=== PATIENT | female | born 1950 | race Two or more races ===

== ENCOUNTER 2020-03-11 16:24 | Emergency (ER) | payer OTHER ==
[~2020-03-11] VITALS: Ht 157.5 cm; Wt 80.7 kg
[2020-03-11 17:41] LABS: Eosinophils # (auto) 0.1 10 ^3/uL (0-0.8); Lymphocytes % (auto) 19.6 % (10.0-50.0); Monocytes # (auto) 0.7 10 ^3/uL (0-1.3); Neutrophils # (auto) 7.4 10 ^3/uL (1.6-8.6)
[2020-03-11 17:42] LABS: Basophils # (auto) 0.1 10 ^3/uL (0-0.2); Basophils % (auto) 0.6 % (0.0-2.0); Eosinophils % (auto) 0.6 % (0.0-7.0); Hematocrit 43.1 % (36.0-46.0); Hemoglobin 14.9 g/dL (12.2-16.2); Mean Corpuscular Hemoglobin 34.6 pg (28.0-32.0); Mean Corpuscular Hgb Conc. 34.6 g/dL (32.0-36.0); Mean Corpuscular Volume 99.9 fL (80.0-100.0); Monocytes % (auto) 6.5 % (0.0-12.0); Neutrophils % (auto) 72.7 % (37.0-80.0); Platelet Count (auto) 274 10^3/uL (140-450); Red Blood Cells 4.31 10^6/uL (4.0-5.20); Red Cell Distribution Width 13.6 % (11.8-14.3); White Blood Cell 10.2 10^3/uL (4.4-10.8)
[2020-03-11] MEDS ORDERED: cloNIDine HCL 0.1 MG TAB ONE (17:57)
[2020-03-11] MEDS ORDERED: cloNIDine HCL 0.1 MG TAB PO ONE (18:00)
[2020-03-11 18:06] LABS: Alanine Aminotransferase 26 U/L (13-56); Albumin 3.4 g/dL (3.4-5.0); Anion Gap 8 (5-15); Aspartate Aminotransferase 16 U/L (15-37); BUN/Creatinine Ratio 21.2; Blood Urea Nitrogen 14 mg/dL (7-18); Calcium 8.3 mg/dL (8.5-10.1); Carbon Dioxide 24 mmol/L (21-32); Chloride 109 mmol/L (98-107); GFR African American 114 mL/min; GFR Non-African American 94 mL/min; Glucose 88 mg/dL (74-106); Lipase 95 U/L (73-393); Potassium 3.3 mmol/L (3.5-5.1); Sodium 141 mmol/L (136-145)
[2020-03-11 18:11] LABS: Alkaline Phosphatase 92 U/L (45-117); Bilirubin, Total 0.4 mg/dL (0.2-1.0); Total Protein 6.9 g/dL (6.4-8.2)
[2020-03-11 18:57] LABS: Urine WBC None Seen /hpf (0 - 5)
[2020-03-11 19:18] LABS: Urine Bacteria NONE SEEN /hpf (None Seen); Urine Blood Negative /uL (Negative); Urine Mucus FEW (None Seen); Urine Specific Gravity 1.014 (1.001-1.035)
[2020-03-11 19:43] VITALS: BP 185/93
[2020-03-12] MEDS ORDERED: METO-158 PO ×2 (09:25→09:29)
[2020-03-12] MEDS ORDERED: LISI-648 PO (09:25)
== END 2020-03-11 19:46 | disposition home or self-care (01) ==
LOC: ER 16:24
DX: R10.9 Unspecified abdominal pain (principal); I16.0 Hypertensive urgency; F17.210 Nicotine dependence, cigarettes, uncomplicated; I10 Essential (primary) hypertension
CPT/HCPCS: 36415; 74176; 80053; 81001; 83690; 84484; 85025; 93005

== ENCOUNTER 2020-03-11 22:38 | Inpatient (IN) | payer OTHER ==
[~2020-03-11] VITALS: Ht 157.5 cm; Wt 85.0 kg
[2020-03-12 01:16] LABS: Basophils # (auto) 0 10 ^3/uL (0-0.2); Basophils % (auto) 0.5 % (0.0-2.0); Eosinophils # (auto) 0.1 10 ^3/uL (0-0.8); Eosinophils % (auto) 1.1 % (0.0-7.0); Hematocrit 41.8 % (36.0-46.0); Hemoglobin 14.1 g/dL (12.2-16.2); Lymphocytes # (auto) 2.7 10 ^3/uL (0.4-5.4); Lymphocytes % (auto) 33.5 % (10.0-50.0); Mean Corpuscular Hemoglobin 33.8 pg (28.0-32.0); Mean Corpuscular Hgb Conc. 33.6 g/dL (32.0-36.0); Mean Corpuscular Volume 100.6 fL (80.0-100.0); Monocytes # (auto) 0.7 10 ^3/uL (0-1.3); Monocytes % (auto) 8.5 % (0.0-12.0); Neutrophils # (auto) 4.5 10 ^3/uL (1.6-8.6); Neutrophils % (auto) 56.4 % (37.0-80.0); Nucleated Red Blood Cells % 0.2 %; Platelet Count (auto) 265 10^3/uL (140-450); Red Blood Cells 4.16 10^6/uL (4.0-5.20); Red Cell Distribution Width 13.6 % (11.8-14.3); White Blood Cell 7.9 10^3/uL (4.4-10.8)
[2020-03-12 01:30] LABS: Alanine Aminotransferase 25 U/L (13-56); Albumin 3.2 g/dL (3.4-5.0); Anion Gap 7 (5-15); Aspartate Aminotransferase 15 U/L (15-37); BUN/Creatinine Ratio 24.6; Blood Urea Nitrogen 14 mg/dL (7-18); Calcium 8.4 mg/dL (8.5-10.1); Carbon Dioxide 25 mmol/L (21-32); Chloride 108 mmol/L (98-107); GFR African American 135 mL/min; GFR Non-African American 112 mL/min; Glucose 84 mg/dL (74-106); Magnesium 1.9 mg/dL (1.6-2.6); Potassium 3.4 mmol/L (3.5-5.1); Sodium 140 mmol/L (136-145)
[2020-03-12 01:46] LABS: Alkaline Phosphatase 83 U/L (45-117); Bilirubin, Total 0.4 mg/dL (0.2-1.0); Total Protein 6.5 g/dL (6.4-8.2)
[2020-03-12] MEDS ORDERED: cloNIDine HCL 0.1 MG TAB PO ONE (03:15)
[2020-03-12] MEDS ORDERED: TEMAZEPAM 15 MG CAP PO ONE (03:30)
[2020-03-12] MEDS ORDERED: ACETAMINOPHEN 325 MG TAB PO ONE (03:30)
[2020-03-12] MEDS ORDERED: TEMAZEPAM 15 MG CAP PO PRN (06:00)
[2020-03-12] MEDS ORDERED: MORPHINE SULF INJ 2 MG/ML SYRINGE 1ML IV PRN (06:00)
[2020-03-12] MEDS ORDERED: ONDANSETRON HCL 4 MG/2 ML VIAL IV PRN (06:00)
[2020-03-12] MEDS ORDERED: ACETAMINOPHEN 325 MG TAB PO PRN (06:00)
[2020-03-12] MEDS ORDERED: NITROGLYCERIN 0.4 MG SL TAB SL PRN (06:00)
[2020-03-12 08:29] VITALS: BP 194/74
[2020-03-12 08:45] VITALS: BP 158/96
[2020-03-12] MEDS ORDERED: LISI-648 PO (09:25)
[2020-03-12] MEDS ORDERED: METO-158 PO ×2 (09:25→09:29)
[2020-03-12] MEDS: FAMOTIDINE 20 MG TAB PO SCH ×2 (10:00→22:15)
[2020-03-12] MEDS: METOPROLOL SUCCINATE XL 50 MG TAB PO SCH (10:04)
[2020-03-12] MEDS: LISINOPRIL 20 MG TAB PO SCH (10:04)
[2020-03-12] MEDS: cloNIDine HCL 0.1 MG TAB PO PRN ×2 (10:09→16:35)
[2020-03-12 13:00] VITALS: BP 159/90
[2020-03-12] MEDS ORDERED: FUROSEMIDE 40 MG TAB PO ONE (17:00)
[2020-03-12] MEDS ORDERED: POTASSIUM CHL 20 Meq TABLET PO ONE (17:00)
[2020-03-12] MEDS ORDERED: KETOROLAC TROMETH 30 MG/ML 1ML VIAL IV ONE (18:45)
[2020-03-12] MEDS: hydrALAZINE HCL 25 MG TAB PO SCH ×2 (18:57→22:15)
[2020-03-12] MEDS: amLODIPine BESYLATE 5 MG TAB PO SCH (18:57)
[2020-03-12] MEDS ORDERED: LORazepam 2MG/ML-1ML VIAL IV PRN (21:15)
[2020-03-12 22:00] VITALS: BP 130/84
[2020-03-12] MEDS ORDERED: ATORVASTATIN 20 MG TAB PO SCH (22:00)
[2020-03-12] MEDS ORDERED: GABAPENTIN 300 MG CAP PO SCH (22:00)
[2020-03-13] MEDS: MORPHINE SULFATE 10 MG/5 ML ORAL SOLN PO PRN ×2 (02:45→11:38)
[2020-03-13 05:00] VITALS: BP 128/81
[2020-03-13] MEDS: hydrALAZINE HCL 25 MG TAB PO SCH ×2 (06:28→13:38)
[2020-03-13 06:35] LABS: Basophils # (auto) 0 10 ^3/uL (0-0.2); Eosinophils # (auto) 0.1 10 ^3/uL (0-0.8); Hemoglobin 13.1 g/dL (12.2-16.2); Lymphocytes # (auto) 1.8 10 ^3/uL (0.4-5.4); Monocytes # (auto) 0.5 10 ^3/uL (0-1.3)
[2020-03-13 06:37] LABS: Basophils % (auto) 0.4 % (0.0-2.0); Eosinophils % (auto) 1.1 % (0.0-7.0); Hematocrit 38.3 % (36.0-46.0); Lymphocytes % (auto) 29.9 % (10.0-50.0); Mean Corpuscular Hemoglobin 34.5 pg (28.0-32.0); Mean Corpuscular Hgb Conc. 34.2 g/dL (32.0-36.0); Mean Corpuscular Volume 101.1 fL (80.0-100.0); Neutrophils # (auto) 3.7 10 ^3/uL (1.6-8.6); Neutrophils % (auto) 60.6 % (37.0-80.0); Platelet Count (auto) 223 10^3/uL (140-450); Red Blood Cells 3.79 10^6/uL (4.0-5.20); Red Cell Distribution Width 13.5 % (11.8-14.3); White Blood Cell 6.2 10^3/uL (4.4-10.8)
[2020-03-13 07:02] LABS: BUN/Creatinine Ratio 27.9; Calcium 8.3 mg/dL (8.5-10.1); Potassium 4.2 mmol/L (3.5-5.1)
[2020-03-13 09:00] VITALS: BP 126/91
[2020-03-13] MEDS: FAMOTIDINE 20 MG TAB PO SCH (09:29)
[2020-03-13] MEDS: amLODIPine BESYLATE 5 MG TAB PO SCH (09:29)
[2020-03-13] MEDS: METOPROLOL SUCCINATE XL 50 MG TAB PO SCH (09:30)
[2020-03-13] MEDS ORDERED: POTASSIUM CHL 20 Meq TABLET PO SCH (10:00)
[2020-03-13] MEDS ORDERED: ENOXAPARIN SOD 40 MG/0.4 ML SYRINGE SC SCH (10:00)
[2020-03-13] MEDS ORDERED: FUROSEMIDE 40 MG TAB PO SCH (10:00)
[2020-03-13] MEDS: LISINOPRIL 20 MG TAB PO SCH (11:38)
[2020-03-13 13:00] VITALS: BP 152/80
[2020-03-13] MEDS ORDERED: POLYETHYLENE GLYCOL 17 GM PWDR PO ONE (13:15)
[2020-03-13] MEDS ORDERED: LISI-646 PO (14:40)
[2020-03-13] MEDS ORDERED: AML5T PO (14:40)
[2020-03-13] MEDS ORDERED: FURO40TA4 PO (14:40)
[2020-03-13] MEDS ORDERED: POTA-220 PO (14:40)
[2020-03-13] MEDS ORDERED: METO-6 PO (14:40)
[2020-03-13] MEDS ORDERED: HYDR-2691 PO (14:40)
[2020-03-13 15:25] VITALS: BP 152/80
== END 2020-03-13 16:53 | disposition home or self-care (01) | DRG 305 ==
LOC: EDBD 22:38 → ER 22:44 → TELE 22:45 → TELE-WESTW 03-12 08:02
PROVIDERS: ADMIT Nurse Practitioner; ATTEND Internal Medicine
DX: I16.9 Hypertensive crisis, unspecified (principal); R51 Headache; E66.01 Morbid (severe) obesity due to excess calories; Z68.30 Body mass index [BMI] 30.0-30.9, adult; F17.210 Nicotine dependence, cigarettes, uncomplicated; I10 Essential (primary) hypertension; Z80.0 Family history of malignant neoplasm of digestive organs; Z80.8 Family history of malignant neoplasm of other organs or systems
CPT/HCPCS: 36415; 70450; 71045; 74176; 80048; 80053; 81001; 83690; 83735; 84443; 84484; 85025; 93005; 93306; G0378; J1885

== ENCOUNTER 2020-11-18 09:28 | Inpatient (IN) | payer OTHER ==
[~2020-11-18] VITALS: Ht 157.5 cm; Wt 86.0 kg
[~2020-11-18 09:28] MED LIST: AML5T PO; FURO40TA4 PO; HYDR25TA87 PO; LISI20TA28 PO; METO-6 PO; POTA-220 PO
[2020-11-18 10:01] LABS: Basophils # (auto) 0.1 10 ^3/uL (0-0.2); Eosinophils # (auto) 0.1 10 ^3/uL (0-0.8); Hematocrit 40.5 % (36.0-46.0)
[2020-11-18 10:03] LABS: Basophils % (auto) 0.6 % (0.0-2.0); Eosinophils % (auto) 0.7 % (0.0-7.0); Hemoglobin 13.9 g/dL (12.2-16.2); Lymphocytes # (auto) 1.4 10 ^3/uL (0.4-5.4); Lymphocytes % (auto) 9.5 % (10.0-50.0); Mean Corpuscular Hemoglobin 34.2 pg (28.0-32.0); Mean Corpuscular Hgb Conc. 34.3 g/dL (32.0-36.0); Mean Corpuscular Volume 99.7 fL (80.0-100.0); Monocytes # (auto) 1.2 10 ^3/uL (0-1.3); Monocytes % (auto) 7.9 % (0.0-12.0); Neutrophils % (auto) 81.3 % (37.0-80.0); Nucleated Red Blood Cells % 0.1 %; Platelet Count (auto) 294 10^3/uL (140-450); Red Blood Cells 4.07 10^6/uL (4.0-5.20); Red Cell Distribution Width 13.8 % (11.8-14.3); White Blood Cell 14.7 10^3/uL (4.4-10.8)
[2020-11-18] MEDS ORDERED: ASPirin 81 mg TAB PO ONE (10:15)
[2020-11-18] MEDS ORDERED: cefTRIAXone 1GM/50ML D5W 50 ML IV ONE (10:15)
[2020-11-18 10:20] LABS: Albumin 3.8 g/dL (3.4-5.0); Anion Gap 8 (5-15); Blood Urea Nitrogen 14 mg/dL (7-18); Calcium 8.8 mg/dL (8.5-10.1); Carbon Dioxide 22 mmol/L (21-32); Chloride 109 mmol/L (98-107); Glucose 103 mg/dL (74-106); Potassium 3.6 mmol/L (3.5-5.1); Sodium 139 mmol/L (136-145)
[2020-11-18 10:25] LABS: Alanine Aminotransferase 25 U/L (13-56); Alkaline Phosphatase 92 U/L (45-117); Aspartate Aminotransferase 13 U/L (15-37); Bilirubin, Total 0.7 mg/dL (0.2-1.0); GFR African American 125 mL/min; GFR Non-African American 103 mL/min; Total Protein 7.1 g/dL (6.4-8.2)
[2020-11-18] MEDS ORDERED: MORPHINE SULF INJ 2 MG/ML SYRINGE 1ML IV ONE (11:15)
[2020-11-18] MEDS ORDERED: ONDANSETRON HCL 4 MG/2 ML VIAL IV ONE (11:15)
[2020-11-18 12:06] LABS: Urine Bacteria FEW /hpf (None Seen); Urine Blood Negative /uL (Negative); Urine WBC <1 /hpf (0 - 5)
[2020-11-18] MEDS ORDERED: NITROGLYCERIN 0.4 MG SL TAB SL PRN (13:45)
[2020-11-18] MEDS ORDERED: IPRATROPIUM BROM 0.5 MG/2.5ML INH SOL NEB PRN (13:45)
[2020-11-18] MEDS ORDERED: MORPHINE SULF INJ 2 MG/ML SYRINGE 1ML IV PRN ×2 (13:45)
[2020-11-18] MEDS ORDERED: ALBUTEROL SULF 2.5 MG/0.5ML(0.5%) NEB SOLN NEB PRN (13:45)
[2020-11-18] MEDS ORDERED: ASPirin-EC 81 mg tab PO ONE ×2 (13:45→14:00)
[2020-11-18] MEDS ORDERED: hydrALAZINE HCL 20 MG/ML VL IV PRN (13:45)
[2020-11-18] MEDS ORDERED: ONDANSETRON HCL 4 MG/2 ML VIAL IV PRN (13:45)
[2020-11-18] MEDS ORDERED: AZITHROMYCIN 250 MG TAB PO ONE (14:00)
[2020-11-18] MEDS ORDERED: LISINOPRIL 10 MG TAB PO ONE (14:00)
[2020-11-18] MEDS ORDERED: METOPROLOL TARTRATE 25 MG TAB PO ONE (14:00)
[2020-11-18] MEDS ORDERED: FAMOTIDINE 20 MG TAB PO ONE (14:00)
[2020-11-18 14:31] LABS: CRP High Sensitivity 2.28 mg/dL (< 0.3)
[2020-11-18 15:10] VITALS: BP 132/79
[2020-11-18 17:31] VITALS: BP 105/60
[2020-11-18 18:03] VITALS: BP 105/60
[2020-11-18] MEDS ORDERED: SERT50TA19 PO (18:17)
[2020-11-18] MEDS: ACETAMINOPHEN 500 MG TAB PO PRN (19:58)
[2020-11-18 21:40] VITALS: BP 116/67
[2020-11-18] MEDS: ATORVASTATIN 20 MG TAB PO SCH (21:43)
[2020-11-18] MEDS: METOPROLOL TARTRATE 25 MG TAB PO SCH (22:00)
[2020-11-19 05:03] VITALS: BP 136/96
[2020-11-19 06:18] LABS: Basophils # (auto) 0 10 ^3/uL (0-0.2); Eosinophils # (auto) 0.2 10 ^3/uL (0-0.8); Hemoglobin 12.2 g/dL (12.2-16.2); Mean Corpuscular Hgb Conc. 34.6 g/dL (32.0-36.0); Platelet Count (auto) 242 10^3/uL (140-450); White Blood Cell 7.9 10^3/uL (4.4-10.8)
[2020-11-19 06:19] LABS: Basophils % (auto) 0.2 % (0.0-2.0); Eosinophils % (auto) 2.1 % (0.0-7.0); Hematocrit 35.2 % (36.0-46.0); Lymphocytes # (auto) 1.8 10 ^3/uL (0.4-5.4); Lymphocytes % (auto) 22.4 % (10.0-50.0); Mean Corpuscular Hemoglobin 35.1 pg (28.0-32.0); Mean Corpuscular Volume 101.5 fL (80.0-100.0); Monocytes # (auto) 0.6 10 ^3/uL (0-1.3); Monocytes % (auto) 7.9 % (0.0-12.0); Neutrophils # (auto) 5.3 10 ^3/uL (1.6-8.6); Neutrophils % (auto) 67.4 % (37.0-80.0); Red Blood Cells 3.47 10^6/uL (4.0-5.20); Red Cell Distribution Width 13.9 % (11.8-14.3)
[2020-11-19 06:31] LABS: Calcium 8.1 mg/dL (8.5-10.1); Potassium 3.2 mmol/L (3.5-5.1)
[2020-11-19 08:46] VITALS: BP 144/78
[2020-11-19] MEDS: ASPirin-EC 81 mg tab PO SCH (10:31)
[2020-11-19] MEDS: FAMOTIDINE 20 MG TAB PO SCH (10:32)
[2020-11-19] MEDS: METOPROLOL TARTRATE 25 MG TAB PO SCH ×2 (10:32→22:00)
[2020-11-19] MEDS: LISINOPRIL 10 MG TAB PO SCH (10:33)
[2020-11-19] MEDS: AZITHROMYCIN 250 MG TAB PO SCH (10:33)
[2020-11-19] MEDS: HYDROcodone-ACET 5/325MG TAB PO PRN ×2 (10:41→19:46)
[2020-11-19] MEDS: FOLIC ACID 1 MG, MULTIPLE VITAMIN 10 ML, MAGNESIUM SULF SDV 50% 8 MEQ, THIAMINE INJ 100... INJ SCH ×5 (12:38)
[2020-11-19 13:19] VITALS: BP 127/76
[2020-11-19 16:30] VITALS: BP 150/77
[2020-11-19] MEDS: SUCRALFATE 1 GM/10 ML ORAL SUSP PO SCH (18:22)
[2020-11-19] MEDS: ATORVASTATIN 20 MG TAB PO SCH (21:13)
[2020-11-19] MEDS: PANTOPRAZOLE 40 MG/10 ML VIAL INJ IV SCH (21:13)
[2020-11-19 21:26] VITALS: BP 136/84
[2020-11-20 04:57] VITALS: BP 136/75
[2020-11-20] MEDS: SUCRALFATE 1 GM/10 ML ORAL SUSP PO SCH ×2 (06:40→17:08)
[2020-11-20] MEDS: ACETAMINOPHEN 500 MG TAB PO PRN (08:13)
[2020-11-20] MEDS ORDERED: SODIUM CHLORIDE LOCK 10 ML ONE (08:24)
[2020-11-20] MEDS ORDERED: LIDOCAINE VISCOUS 2% 15ML UD ONE (08:24)
[2020-11-20] MEDS ORDERED: diphenhdrAMINE HCL 50 MG/1 ML VL ONE (08:25)
[2020-11-20 09:00] VITALS: BP 159/98
[2020-11-20] MEDS: METOPROLOL TARTRATE 25 MG TAB PO SCH (09:41)
[2020-11-20] MEDS: LISINOPRIL 10 MG TAB PO SCH (09:41)
[2020-11-20] MEDS: PANTOPRAZOLE 40 MG/10 ML VIAL INJ IV SCH (09:41)
[2020-11-20] MEDS: ASPirin-EC 81 mg tab PO SCH (09:41)
[2020-11-20] MEDS: FAMOTIDINE 20 MG TAB PO SCH (09:41)
[2020-11-20] MEDS: AZITHROMYCIN 250 MG TAB PO SCH (09:42)
[2020-11-20] MEDS ORDERED: NICOTINE 14 MG/24HR TOPICAL PATCH TD SCH (10:00)
[2020-11-20] MEDS: FOLIC ACID 1 MG, MULTIPLE VITAMIN 10 ML, MAGNESIUM SULF SDV 50% 8 MEQ, THIAMINE INJ 100... INJ SCH ×5 (11:58)
[2020-11-20 13:00] VITALS: BP 149/89
[2020-11-20] MEDS: MIDAZOLAM HCL 5 MG/ML-1ML VIAL ONE ×2 (15:36→15:39)
[2020-11-20] MEDS: fentaNYL CITRATE 100 MCG/2 ML VL ONE ×2 (15:36→15:39)
[2020-11-20 17:00] VITALS: BP 156/93
[2020-11-20 18:58] VITALS: BP 156/93
== END 2020-11-20 20:15 | disposition home or self-care (01) | DRG 392 ==
LOC: ER 09:28 → TELE 13:34 → TELE-WESTW 17:11
PROVIDERS: ADMIT Nurse Practitioner Acute Care; ATTEND Internal Medicine
PROC: 0DB68ZX Excision of Stomach, Via Natural or Artificial Opening Endoscopic, Diagnostic (ICD-10-PCS; principal; 2020-11-20 15:35)
DX: K29.70 Gastritis, unspecified, without bleeding (principal); I24.9 Acute ischemic heart disease, unspecified; K20.90 Esophagitis, unspecified without bleeding; E87.6 Hypokalemia; D72.829 Elevated white blood cell count, unspecified; K80.20 Calculus of gallbladder without cholecystitis without obstruction; I10 Essential (primary) hypertension; E66.9 Obesity, unspecified; F17.210 Nicotine dependence, cigarettes, uncomplicated; Z20.822 Contact with and (suspected) exposure to COVID-19; Z80.0 Family history of malignant neoplasm of digestive organs; Z68.34 Body mass index [BMI] 34.0-34.9, adult; Z80.8 Family history of malignant neoplasm of other organs or systems; F41.9 Anxiety disorder, unspecified; F10.20 Alcohol dependence, uncomplicated
CPT/HCPCS: 36415; 43239; 71045; 76705; 80048; 80053; 80061; 81001; 84484; 85025; 85610; 86141; 86850; 86900; 86901; 87426; 93005; 93306; 96365; 96375; C9113; G0378; J0696; J2250; J2405

== ENCOUNTER 2021-07-20 15:00 | Emergency (ER) | payer OTHER ==
[~2021-07-20] VITALS: Ht 157.5 cm; Wt 81.6 kg
[~2021-07-20 15:00] MED LIST changes: +SERT50TA19 PO
[2021-07-20 19:55] LABS: Eosinophils # (auto) 0.1 10 ^3/uL (0-0.8); Red Cell Distribution Width 13.4 % (11.8-14.3); White Blood Cell 4.4 10^3/uL (4.4-10.8)
[2021-07-20 19:58] LABS: Basophils # (auto) 0 10 ^3/uL (0-0.2); Basophils % (auto) 0.7 % (0.0-2.0); Eosinophils % (auto) 1.4 % (0.0-7.0); Hematocrit 38.8 % (36.0-46.0); Hemoglobin 13.9 g/dL (12.2-16.2); Lymphocytes # (auto) 1.8 10 ^3/uL (0.4-5.4); Lymphocytes % (auto) 41.2 % (10.0-50.0); Mean Corpuscular Hemoglobin 35.6 pg (28.0-32.0); Mean Corpuscular Hgb Conc. 35.9 g/dL (32.0-36.0); Mean Corpuscular Volume 99.2 fL (80.0-100.0); Monocytes # (auto) 0.4 10 ^3/uL (0-1.3); Monocytes % (auto) 9.8 % (0.0-12.0); Neutrophils % (auto) 46.9 % (37.0-80.0); Nucleated Red Blood Cells % 0.2 %; Red Blood Cells 3.91 10^6/uL (4.0-5.20)
[2021-07-20 20:10] LABS: Albumin 3.5 g/dL (3.4-5.0); Potassium 3.6 mmol/L (3.5-5.1)
[2021-07-20 20:16] LABS: BUN/Creatinine Ratio 14.7; Bilirubin, Total 0.5 mg/dL (0.2-1.0); Total Protein 7.3 g/dL (6.4-8.2)
[2021-07-20 21:04] VITALS: BP 162/89
== END 2021-07-20 21:07 | disposition home or self-care (01) ==
LOC: ER 15:00
DX: J20.9 Acute bronchitis, unspecified (principal); F17.210 Nicotine dependence, cigarettes, uncomplicated; I10 Essential (primary) hypertension; Z20.822 Contact with and (suspected) exposure to COVID-19
CPT/HCPCS: 36415; 71045; 80053; 84484; 85025; 85379; 87426

== ENCOUNTER 2021-08-16 18:48 | Emergency (ER) | payer OTHER ==
[~2021-08-16] VITALS: Ht 157.5 cm; Wt 81.6 kg
[2021-08-16] MEDS ORDERED: hydrALAZINE HCL 25 MG TAB PO ONE (20:00)
[2021-08-16] MEDS ORDERED: LISINOPRIL 20 MG TAB PO ONE (20:00)
[2021-08-16] MEDS ORDERED: amLODIPine BESYLATE 5 MG TAB PO ONE (20:00)
[2021-08-16 21:41] VITALS: BP 153/91
[2021-08-16] MEDS ORDERED: ACETAMINOPHEN 325 MG TAB PO ONE (22:00)
== END 2021-08-16 22:37 | disposition home or self-care (01) ==
LOC: ER 18:48
DX: I10 Essential (primary) hypertension (principal); R51.9 Headache, unspecified; F17.210 Nicotine dependence, cigarettes, uncomplicated
CPT/HCPCS: 70450; 93005

== ENCOUNTER 2022-03-30 18:02 | Emergency (ER) | payer OTHER ==
[~2022-03-30] VITALS: Ht 162.6 cm; Wt 91.0 kg
[2022-03-30] MEDS ORDERED: SODIUM CHLORIDE 0.9% 1,000 ML IV ONE (18:30)
[2022-03-30 18:57] LABS: Basophils # (auto) 0 10 ^3/uL (0-0.2); Basophils % (auto) 0.5 % (0.0-2.0); Eosinophils # (auto) 0.1 10 ^3/uL (0-0.8); Eosinophils % (auto) 1.5 % (0.0-7.0); Hematocrit 41.4 % (36.0-46.0); Hemoglobin 13.8 g/dL (12.2-16.2); Lymphocytes # (auto) 1.9 10 ^3/uL (0.4-5.4); Mean Corpuscular Hgb Conc. 33.2 g/dL (32.0-36.0); Mean Corpuscular Volume 99.4 fL (80.0-100.0); Monocytes # (auto) 0.5 10 ^3/uL (0-1.3); Monocytes % (auto) 7.2 % (0.0-12.0); Neutrophils # (auto) 4.6 10 ^3/uL (1.6-8.6); Neutrophils % (auto) 64.8 % (37.0-80.0); Nucleated Red Blood Cells % 0.1 %; Red Blood Cells 4.16 10^6/uL (4.0-5.20); Red Cell Distribution Width 13.7 % (11.8-14.3); White Blood Cell 7.2 10^3/uL (4.4-10.8)
[2022-03-30 19:08] LABS: Albumin 3.7 g/dL (3.4-5.0); Calcium 8.6 mg/dL (8.5-10.1); Potassium 3.8 mmol/L (3.5-5.1)
[2022-03-30 19:13] LABS: BUN/Creatinine Ratio 13.3; Bilirubin, Total 0.3 mg/dL (0.2-1.0); Total Protein 6.3 g/dL (6.4-8.2)
[2022-03-31 13:46] VITALS: BP 178/98
== END 2022-03-31 14:12 | disposition home or self-care (01) ==
LOC: EDBD 18:02 → ER 18:11
DX: F10.129 Alcohol abuse with intoxication, unspecified (principal); I10 Essential (primary) hypertension; J44.9 Chronic obstructive pulmonary disease, unspecified; E78.5 Hyperlipidemia, unspecified; F17.210 Nicotine dependence, cigarettes, uncomplicated; Z79.899 Other long term (current) drug therapy; Y90.7 Blood alcohol level of 200-239 mg/100 ml
CPT/HCPCS: 36415; 80053; 80320; 85025; 93005; 96360; 96361; 99285; J7030

== ENCOUNTER 2023-07-08 18:55 | Emergency (ER) | payer OTHER ==
[~2023-07-08] VITALS: Ht 157.5 cm; Wt 81.8 kg
[~2023-07-08 18:55] MED LIST changes: -LISI20TA28 PO; +LISI20TA56 PO; +SERT-206 PO; -SERT50TA19 PO
[2023-07-08 19:11] VITALS: BP 137/77; PULSE 109; RESP 18; O2SAT 94
== END 2023-07-08 21:10 | disposition left against medical advice (07) ==
LOC: ER 18:55
DX: M25.511 Pain in right shoulder (principal); Z53.21 Procedure and treatment not carried out due to patient leaving prior to being seen by health care provider; W01.0XXA Fall on same level from slipping, tripping and stumbling without subsequent striking against object, initial encounter; Y93.89 Activity, other specified; Y92.89 Other specified places as the place of occurrence of the external cause; Y99.8 Other external cause status

== ENCOUNTER 2023-08-27 21:48 | Emergency (ER) | payer OTHER ==
[~2023-08-27] VITALS: Ht 157.5 cm; Wt 59.0 kg
[2023-08-28 00:01] VITALS: TEMP 97.5
[2023-08-28] MEDS: KETOROLAC TROMETH 60MG/2ML VIAL IM ONE (00:10)
[2023-08-28] MEDS ORDERED: LIDOCAINE 1% HCL (LOCAL ANESTH.) INJ 20ML MDV IJ ONE (00:30)
[2023-08-28] MEDS: PROPOFOL 10 MG/ML 20 ML IV ONE (01:49)
[2023-08-28] MEDS: SODIUM CHLORIDE 0.9% 1,000 ML IV ONE (02:01)
[2023-08-28] MEDS ORDERED: ACET-1304 PO (02:18)
[2023-08-28 03:10] VITALS: BP 118/82; RESP 19; O2SAT 98
[2023-08-28 03:18] VITALS: PULSE 76
== END 2023-08-28 03:27 | disposition home or self-care (01) ==
LOC: EDBD 21:48 → ER 21:48
DX: S43.004A Unspecified dislocation of right shoulder joint, initial encounter (principal); J44.9 Chronic obstructive pulmonary disease, unspecified; I10 Essential (primary) hypertension; E78.5 Hyperlipidemia, unspecified; F17.210 Nicotine dependence, cigarettes, uncomplicated; W01.0XXA Fall on same level from slipping, tripping and stumbling without subsequent striking against object, initial encounter; Y93.89 Activity, other specified; Y92.89 Other specified places as the place of occurrence of the external cause; Y99.8 Other external cause status
CPT/HCPCS: 23650; 73020; 73030; 96360; 99152; 99285; J1885; J2704; J7030